=== PATIENT | female | born 1965 | race Caucasian/White ===

== ENCOUNTER 2018-10-12 15:32 | Emergency (ER) | payer SELFPAY ==
[~2018-10-12] VITALS: Ht 160 cm; Wt 49.0 kg
[~2018-10-12 15:32] MED LIST: OXYC-128 PO
--- NOTE | 2018-10-12 15:49 | NUR ---
PT IS A/OX4, PRESENTS TO THE ER W/ MULTIPLE COMPLAINTS - CHEST/NECK/BACK/LUE PAIN SINCE THIS AM. PT REPORTS THAT "I GOT MORPHINE LAST TIME" AND THAT IT HELPED. VSS. PT STATES SHE IS CURRENTLY ON AZITHROMYCIN FOR COUGH. PT DENIES SOB, N/V/D, DIZZINESS, HEADACHE.
[2018-10-12] MEDS ORDERED: ASPI-605 PO (15:50)
[2018-10-12] MEDS ORDERED: NITR0.4T48 SL (15:50)
--- NOTE | 2018-10-12 15:51 | NUR ---
TRAINING TECHNICIAN AT BEDSIDE.
--- NOTE | 2018-10-12 16:01 | NUR ---
MEDICAL ASSISTANT FLOAT AT BEDSIDE.
[2018-10-12 16:03] LABS: BASOPHILS # (AUTO) 0.1 K/uL (0.0-8.0); BASOPHILS % (AUTO) 0.6 % (0.0-2.0); EOSINOPHILS # (AUTO) 0.1 K/uL (0.0-0.7); EOSINOPHILS % (AUTO) 1.3 % (0.0-7.0); HEMATOCRIT 38.9 % (31.2-41.9); HEMOGLOBIN 12.9 g/dL (10.9-14.3); LYMPHOCYTES # (AUTO) 2.1 K/uL (20.0-40.0); LYMPHOCYTES % (AUTO) 21.3 % (20.5-51.5); MEAN CORPUSCULAR HEMOGLOBIN 28.5 uug (24.7-32.8); MEAN CORPUSCULAR HGB CONC 33 g/dL (32.3-35.6); MEAN CORPUSCULAR VOLUME 85.8 fL (75.5-95.3); MONOCYTES # (AUTO) 0.5 K/uL (2.0-10.0); MONOCYTES % (AUTO) 5.4 % (0.0-11.0); NEUTROPHILS # (AUTO) 7.1 K/uL (1.8-8.9); NEUTROPHILS % (AUTO) 71.4 % (38.5-71.5); PLATELET COUNT (AUTO) 377 K/uL (179-408); RED BLOOD CELL COUNT(AUTO) 4.53 MIL/uL (3.63-4.92); WHITE BLOOD COUNT (AUTO) 9.9 K/uL (3.8-11.8)
[2018-10-12 16:09] LABS: CREATININE 0.8 mg/dL (0.6-1.3); POTASSIUM 3.6 mmol/L (3.5-5.1)
--- NOTE | 2018-10-12 16:10 | NUR ---
Dr Kevin at the bedside for MSE.
[2018-10-12] MEDS ORDERED: ASPIRIN 81 MG TAB.CHEW ONE (16:21)
[2018-10-12 16:22] LABS: BILIRUBIN,DIRECT 0.1 mg/dL (0.0-0.2); BILIRUBIN,TOTAL 0.3 mg/dL (0.2-1.0); TOTAL PROTEIN, SERUM 6.7 g/dL (6.4-8.2)
[2018-10-12] MEDS ORDERED: ASPIRIN 81 MG TAB.CHEW PO ONE (16:30)
--- NOTE | 2018-10-12 17:10 | NUR ---
PT DEMANDING MORPHINE STATING "I NEED MORPHINE".
--- NOTE | 2018-10-12 17:18 | NUR ---
Patient does not wish to proceed with medical care recommended by Dr. MCNAMARA. Patient given information related to possible complications, up to and including , which could occur as a result of leaving the hospital at this time. Patient verbalizes understanding of risks involved due to leaving against medical advice. Patient REFUSED TO SIGN AMA FORM.
== END 2018-10-12 17:20 | disposition left against medical advice (07) ==
LOC: ER 15:32
DX: R07.2 Precordial pain (principal); R11.0 Nausea; F17.290 Nicotine dependence, other tobacco product, uncomplicated; Z88.8 Allergy status to other drugs, medicaments and biological substances; Z79.82 Long term (current) use of aspirin; Z79.899 Other long term (current) drug therapy
CPT/HCPCS: 36415; 70030-TC; 71045; 85025; 93005; A4663